=== PATIENT | female | born 1945 | race Caucasian/White ===

== ENCOUNTER 2016-07-31 15:37 | Emergency (ER) | payer MEDICARE, OTHER ==
[2016-07-31] MEDS ORDERED: IOPAMIDOL 300 (61%) 100 ML VIAL IV ONE (15:38)
[2016-07-31] MEDS ORDERED: ONDANSETRON 4 MG/2ML 2 ML VIAL ONE (16:11)
[2016-07-31] MEDS ORDERED: HYDROMORPHONE HCL 1 MG/ML SYRINGE ONE (16:11)
[2016-07-31 16:53] LABS: URINE BILIRUBIN NEGATIVE (NEGATIVE); URINE BLOOD 1+ (NEGATIVE); URINE GLUCOSE (UA) 1+ (NEGATIVE); URINE LEUKOCYTE ESTERASE 1+ (NEGATIVE); URINE NITRITE POSITIVE (NEGATIVE); URINE PROTEIN TRACE (NEGATIVE); URINE UROBILINOGEN NORMAL (0-1 mg/dl)
[2016-07-31 16:54] LABS: URINE APPEARANCE SL CLOUDY; URINE COLOR YELLOW
[2016-07-31 16:55] LABS: ABSOLUTE NEUTROPHIL COUNT 3.6 K/mm3 (1.8-7.7); BASO % 0.5 % (0.2-1.0); EOS # 0.1 (0.0-0.5); EOS % 2.2 % (0.9-2.9); HEMATOCRIT 46.5 % (37.0-47.0); IMM NEUT% 0.4 % (0-1); LYMPH # 1.2 (1.0-4.8); LYMPH % 21.1 % (15-45); MEAN CELL VOLUME 89.8 fl (81.0-99.0); MEAN CORPUSCULAR HGB CONC 32.3 g/dl (33.0-37.0); MEAN PLATELET VOLUME 10.7 fl (7.4-10.4); MONO # 0.6 (0.0-0.8); MONO % 10.9 % (4-12); NEUT % 64.9 % (43-75); PLATELET COUNT 249 K/mm3 (130-400); RED CELL DISTRIBUTION WIDTH 13.5 % (11.5-14.5)
[2016-07-31 17:03] LABS: URINE EPITHELIAL CELLS 0-2 /hpf; URINE RBC 0-2 /hpf; URINE WBC 0-2 /hpf
[2016-07-31 17:04] LABS: ALBUMIN 3.7 gm/dL (3.5-5.7); CALCIUM 9.6 mg/dL (8.6-10.3); URINE BACTERIA 4+
[2016-07-31 17:16] LABS: INR 1.9; PROTHROMBIN TIME 20.6 SECONDS (9.3-11.4)
--- NOTE | 2016-07-31 18:35 | CT ---
Exam Type: ABD/PELVIS W/ CON Date and Time: 07/31/2016 5:27 PM Clinical information: Left lower quadrant pain. Comparison: 09/04/2013 Technique: Contiguous axial 4 mm images were obtained from the lung bases through the pelvis after the uneventful IV administration of 100 cc of [id number]. Sagittal and coronal reformations with high resolution lung algorithm images were also obtained at this time. CT DI: 31.3 DLP 1665.3 FINDINGS: Lung base : Dependent and atelectatic changes are present. Visualized heart:There is no pericardial effusion. LIVER: Diffuse fatty infiltration. Probable focal fat is noted along the gallbladder fossa. BILE DUCTS: normal caliber. GALLBLADDER: Surgically absent PANCREAS: Mild atrophy with fatty replacement. This is noted predominantly along the uncinate process. SPLEEN: within normal limits. ADRENALS: within normal limits. KIDNEYS: within normal limits. Stomach and small BOWEL: Normal caliber. Large bowel: Large amount of stool is present within the ascending and transverse colon. Much of the descending colon is decompressed. Gas filled sigmoid is identified. Appendix is not visualized though secondary signs of appendicitis are not seen. LYMPH NODES: No enlarged mesenteric lymph nodes. PERITONEUM: no ascites or free air, no fluid collection. VESSELS: Mild atherosclerotic disease RETROPERITONEUM: within normal limits. ABDOMINAL WALL: Fat-containing open right inguinal ring. Atrophy of the gluteus minimus and medius musculature with fatty replacement. Atrophy of the gluteus eugenio bilaterally. Bladder: Suprapubic catheter. BONES: Multilevel degenerative changes are present. The patient's dextro scoliosis is again noted. IMPRESSION: No specific cause for the patient's stated pain is identified. Close clinical and radiographic follow-up are recommended Incidental findings as above. Findings were called to Dr. Carmichael at approximately 1830 hours on 07/31/2016.
[2016-07-31] MEDS ORDERED: SULFAMETHOXAZOLE 800 MG/TRIMETHOPRIM 160 MG TABLET ONE (18:51)
== END 2016-07-31 20:38 | disposition home or self-care (01) ==
LOC: ED 15:37 → SUPCPDRO 15:37 → ED 20:38
DX: N39.0 Urinary tract infection, site not specified (principal); K59.00 Constipation, unspecified; E11.9 Type 2 diabetes mellitus without complications; E03.9 Hypothyroidism, unspecified; Z86.718 Personal history of other venous thrombosis and embolism; Z79.84 Long term (current) use of oral hypoglycemic drugs; Z79.01 Long term (current) use of anticoagulants
CPT/HCPCS: 83690; 85025; 87086; 80053; 87186 ×2; 85610; 81001; 74177; 96375; 99284 ×2; 96374; 93005; A9270; J1170; J2405; Q9967